=== PATIENT | male | born 1960 | race Caucasian/White ===

== ENCOUNTER 2020-07-09 10:41 | Emergency (ER) | payer OTHER ==
[~2020-07-09 10:41] MED LIST: AFRIN15 ML; AUGMENTIN 875-1 EACH PO; FLONASE 0.05% N16 GM
[2020-07-09 12:56] LABS: HEMOGLOBIN 13.8 gm/dl (14.0-17.5); RED BLOOD COUNT 4.56 M/UL (4.20-5.50); WHITE BLOOD COUNT 9.5 K/UL (4.5-11.0)
[2020-07-09 13:16] LABS: BUN/CREATININE RATIO 32 (0-10)
[2020-07-09] MEDS ORDERED: LEVOFLOXACIN750 MG PO (15:24)
[2020-07-09] MEDS ORDERED: VIBRAMYCIN 100100 MG PO (15:24)
== END 2020-07-09 15:39 | disposition home or self-care (01) ==
LOC: ER1 10:41
PROVIDERS: Emergency Medicine
DX: S92.351A Displaced fracture of fifth metatarsal bone, right foot, initial encounter for closed fracture (principal); E11.621 Type 2 diabetes mellitus with foot ulcer; I10 Essential (primary) hypertension; Z23 Encounter for immunization; X50.1XXA Overexertion from prolonged static or awkward postures, initial encounter; Y92.009 Unspecified place in unspecified non-institutional (private) residence as the place of occurrence of the external cause
CPT/HCPCS: 73630; 80053; 83880; 85025; 85652; 86140; 90471; 90715; 93971; 96365; 99284; J1956

== ENCOUNTER → 2020-07-13 | Outpatient (CLI) | payer OTHER ==
[~2020-07-13] MED LIST changes: +ASPIRIN EC81 MG PO; +ATORVASTATIN CA10 MG PO; +CLINDAMYCIN HC300 MG PO; +CLOPIDOGREL75 MG PO; +ELIQUIS5 MG PO; +FISH OIL EC 1,1 EACH PO; +FUROSEMIDE40 MG PO; +GABAPENTIN100 MG PO; +GLUCOPHAGE 500500 MG PO; +HYDROCODON-ACE1 EAC6 PO; +LEVOFLOXACIN750 MG PO; +LISINOPRIL10 MG PO; +SULFAMETHOXAZO1 EACH PO; +VIBRAMYCIN 100100 MG PO; +VITAMIN C WIT1000 MG PO; +VITAMIN D21250 MCG PO
== END ==
LOC: KOH-I 14:00
DX: M86.8X7 Other osteomyelitis, ankle and foot (principal); S81.801D Unspecified open wound, right lower leg, subsequent encounter; S92.351D Displaced fracture of fifth metatarsal bone, right foot, subsequent encounter for fracture with routine healing; X58.XXXD Exposure to other specified factors, subsequent encounter
CPT/HCPCS: 73630; 93926

== ENCOUNTER → 2020-07-20 | Outpatient (CLI) | payer OTHER | LOC: WCC 09:00 | DX: E11.621 Type 2 diabetes mellitus with foot ulcer (principal); L97.501 Non-pressure chronic ulcer of other part of unspecified foot limited to breakdown of skin; E11.40 Type 2 diabetes mellitus with diabetic neuropathy, unspecified | CPT/HCPCS: 87070; 87077; 87186; 87205; G0463 ==

== ENCOUNTER → 2020-07-21 | Outpatient (CLI) | payer OTHER | LOC: KOH-I 14:41 | DX: S92.351D Displaced fracture of fifth metatarsal bone, right foot, subsequent encounter for fracture with routine healing (principal); L97.519 Non-pressure chronic ulcer of other part of right foot with unspecified severity; X58.XXXD Exposure to other specified factors, subsequent encounter | CPT/HCPCS: 73630 ==

== ENCOUNTER → 2020-07-22 | Outpatient (CLI) | payer OTHER | LOC: WCC 09:00 | DX: E11.621 Type 2 diabetes mellitus with foot ulcer (principal); L97.519 Non-pressure chronic ulcer of other part of right foot with unspecified severity | CPT/HCPCS: G0463 ==

== ENCOUNTER → 2020-07-24 | Outpatient (CLI) | payer OTHER | LOC: WCC 09:00 | DX: E11.621 Type 2 diabetes mellitus with foot ulcer (principal); L97.519 Non-pressure chronic ulcer of other part of right foot with unspecified severity ==

== ENCOUNTER 2020-08-04 14:04 | Inpatient (IN) | payer OTHER ==
[~2020-08-04] VITALS: Ht 182.9 cm; Wt 103.9 kg
[~2020-08-04 14:04] MED LIST changes: -ASPIRIN EC81 MG PO; -ATORVASTATIN CA10 MG PO; -CLINDAMYCIN HC300 MG PO; -CLOPIDOGREL75 MG PO; -ELIQUIS5 MG PO; -FISH OIL EC 1,1 EACH PO; -FUROSEMIDE40 MG PO; -GABAPENTIN100 MG PO; -GLUCOPHAGE 500500 MG PO; -HYDROCODON-ACE1 EAC6 PO; -LISINOPRIL10 MG PO; -SULFAMETHOXAZO1 EACH PO; -VITAMIN C WIT1000 MG PO; -VITAMIN D21250 MCG PO
[2020-08-04 15:32] LABS: HEMOGLOBIN 9.6 gm/dl (14.0-17.5); RED BLOOD COUNT 3.12 M/UL (4.20-5.50); WHITE BLOOD COUNT 17.3 K/UL (4.5-11.0)
[2020-08-04] MEDS ORDERED: LISINOPRIL10 MG PO (17:47)
[2020-08-04] MEDS ORDERED: SULFAMETHOXAZO1 EACH PO (17:47)
[2020-08-04] MEDS ORDERED: CLINDAMYCIN HC300 MG PO (17:48)
[2020-08-04] MEDS ORDERED: GLUCOPHAGE 500500 MG PO (17:49)
[2020-08-04] MEDS ORDERED: ELIQUIS5 MG PO (17:49)
[2020-08-04] MEDS ORDERED: ATORVASTATIN CA10 MG PO (17:49)
[2020-08-04] MEDS ORDERED: FUROSEMIDE40 MG PO (17:50)
[2020-08-04] MEDS ORDERED: VITAMIN C WIT1000 MG PO (17:50)
[2020-08-04] MEDS ORDERED: VITAMIN D21250 MCG PO (17:50)
[2020-08-04] MEDS ORDERED: ASPIRIN EC81 MG PO (17:51)
[2020-08-04 18:02] LABS: HEMOGLOBIN 9.1 gm/dl (14.0-17.5)
[2020-08-05 03:15] LABS: RED BLOOD COUNT 2.93 M/UL (4.20-5.50); WHITE BLOOD COUNT 13.2 K/UL (4.5-11.0)
[2020-08-05 09:47] LABS: HEMOGLOBIN 9.3 gm/dl (14.0-17.5)
[2020-08-05 18:53] LABS: HEMOGLOBIN 9.4 gm/dl (14.0-17.5); RED BLOOD COUNT 3.1 M/UL (4.20-5.50); WHITE BLOOD COUNT 15.7 K/UL (4.5-11.0)
[2020-08-06 02:08] LABS: RED BLOOD COUNT 2.96 M/UL (4.20-5.50); WHITE BLOOD COUNT 15.7 K/UL (4.5-11.0)
[2020-08-07 09:54] LABS: HEMOGLOBIN 8.8 gm/dl (14.0-17.5); RED BLOOD COUNT 2.91 M/UL (4.20-5.50); WHITE BLOOD COUNT 15.4 K/UL (4.5-11.0)
[2020-08-08 05:09] LABS: HEMOGLOBIN 8.5 gm/dl (14.0-17.5); RED BLOOD COUNT 2.77 M/UL (4.20-5.50); WHITE BLOOD COUNT 14.8 K/UL (4.5-11.0)
[2020-08-08 05:42] LABS: BUN/CREATININE RATIO 23 (0-10)
[2020-08-09 03:18] LABS: HEMOGLOBIN 8.2 gm/dl (14.0-17.5); RED BLOOD COUNT 2.71 M/UL (4.20-5.50); WHITE BLOOD COUNT 16.4 K/UL (4.5-11.0)
[2020-08-09 03:41] LABS: BUN/CREATININE RATIO 22 (0-10)
[2020-08-10 03:41] LABS: HEMOGLOBIN 7.8 gm/dl (14.0-17.5); RED BLOOD COUNT 2.59 M/UL (4.20-5.50); WHITE BLOOD COUNT 14.6 K/UL (4.5-11.0)
[2020-08-10 04:02] LABS: BUN/CREATININE RATIO 19 (0-10)
[2020-08-10 17:29] LABS: HEMOGLOBIN 7.6 gm/dl (14.0-17.5)
[2020-08-11 01:50] LABS: HEMOGLOBIN 7.1 gm/dl (14.0-17.5); RED BLOOD COUNT 2.36 M/UL (4.20-5.50)
[2020-08-11 02:07] LABS: BUN/CREATININE RATIO 19 (0-10)
[2020-08-11 09:13] LABS: HEMOGLOBIN 7.6 gm/dl (14.0-17.5)
[2020-08-13 06:41] LABS: HEMOGLOBIN 8.6 gm/dl (14.0-17.5); WHITE BLOOD COUNT 11.5 K/UL (4.5-11.0)
[2020-08-13 06:43] LABS: RED BLOOD COUNT 2.9 M/UL (4.20-5.50)
--- NOTE | 2020-08-13 11:45 | NUR ---
I CALLED SURGERY AND SPOKE WITH SALEEM ABOUT PATIENTS ANITBIOTICS. SHE STATES TO TUBE THE AMPICILLIN DOWN TO HER AND THAT THEY WOULD GIVE WHILE PATIENT WAS ON THIER UNIT.
[2020-08-14 05:40] LABS: HEMOGLOBIN 8.5 gm/dl (14.0-17.5); RED BLOOD COUNT 2.87 M/UL (4.20-5.50); WHITE BLOOD COUNT 11.1 K/UL (4.5-11.0)
[2020-08-15 05:41] LABS: RED BLOOD COUNT 2.72 M/UL (4.20-5.50); WHITE BLOOD COUNT 10.3 K/UL (4.5-11.0)
[2020-08-16 05:40] LABS: HEMOGLOBIN 8.2 gm/dl (14.0-17.5); RED BLOOD COUNT 2.78 M/UL (4.20-5.50); WHITE BLOOD COUNT 10.3 K/UL (4.5-11.0)
[2020-08-17 05:32] LABS: HEMOGLOBIN 8.3 gm/dl (14.0-17.5); RED BLOOD COUNT 2.74 M/UL (4.20-5.50); WHITE BLOOD COUNT 8.9 K/UL (4.5-11.0)
[2020-08-17 05:58] LABS: BUN/CREATININE RATIO 23 (0-10)
[2020-08-19 06:19] LABS: HEMOGLOBIN 8.1 gm/dl (14.0-17.5); RED BLOOD COUNT 2.72 M/UL (4.20-5.50)
[2020-08-19 06:35] LABS: WHITE BLOOD COUNT 11.7 K/UL (4.5-11.0)
[2020-08-20 05:57] LABS: HEMOGLOBIN 7.5 gm/dl (14.0-17.5); RED BLOOD COUNT 2.5 M/UL (4.20-5.50); WHITE BLOOD COUNT 11.7 K/UL (4.5-11.0)
[2020-08-20 06:21] LABS: BUN/CREATININE RATIO 24 (0-10)
[2020-08-20] MEDS ORDERED: GABAPENTIN100 MG PO (15:09)
[2020-08-20] MEDS ORDERED: FISH OIL EC 1,1 EACH PO (15:09)
[2020-08-20] MEDS ORDERED: CLOPIDOGREL75 MG PO (15:09)
[2020-08-20] MEDS ORDERED: FUROSEMIDE40 MG PO (15:09)
[2020-08-20] MEDS ORDERED: VITAMIN D21250 MCG PO (15:10)
[2020-08-20] MEDS ORDERED: ELIQUIS5 MG PO (15:10)
[2020-08-20] MEDS ORDERED: ASPIRIN EC81 MG PO (15:10)
[2020-08-20] MEDS ORDERED: VITAMIN C WIT1000 MG PO (15:10)
[2020-08-20] MEDS ORDERED: GLUCOPHAGE 500500 MG PO (15:10)
[2020-08-20] MEDS ORDERED: HYDROCODON-ACE1 EAC6 PO (15:13)
--- NOTE | 2020-08-20 18:08 | NUR ---
LEFT MESSAGE FOR [facility]. UNSURE OF WHAT TIME WAS ARRANGED FOR PT. PT INSTRUCTED TO CALL [facility] IN AM AND PT. WAS TOLD THIS IS WHERE HE WILL GET HIS ANTIBIOTICS AND DRESSING CHANGES DONE.
== END 2020-08-20 18:41 | disposition home or self-care (01) | DRG 271 ==
LOC: ER1 14:04 → CCU 16:51 → MED SURG 4 16:51 → CDU 16:51 → M/S 16:51 → MED SURG 4 20:59 → CCU 08-13 14:02 → M/S 08-17 16:42
PROVIDERS: Internal Medicine; Physician Assistant; Student in an Organized Health Care Education/Training Program; Surgery; ADMIT Family Medicine
PROC: B24BZZZ Ultrasonography of Heart with Aorta (ICD-10-PCS; 2020-08-06)
PROC: 047K341 Dilation of Right Femoral Artery with Drug-eluting Intraluminal Device, using Drug-Coated Balloon, Percutaneous Approach (ICD-10-PCS; 2020-08-13)
PROC: 047P3Z1 Dilation of Right Anterior Tibial Artery using Drug-Coated Balloon, Percutaneous Approach (ICD-10-PCS; 2020-08-13)
PROC: 047R3Z1 Dilation of Right Posterior Tibial Artery using Drug-Coated Balloon, Percutaneous Approach (ICD-10-PCS; 2020-08-13)
PROC: 047 Lower Arteries, Dilation (ICD-10-PCS; 2020-08-13)
PROC: 04CK3ZZ Extirpation of Matter from Right Femoral Artery, Percutaneous Approach (ICD-10-PCS; principal; 2020-08-13 07:30)
PROC: 0QBN0ZZ Excision of Right Metatarsal, Open Approach (ICD-10-PCS; 2020-08-14)
PROC: 0HRMXK3 Replacement of Right Foot Skin with Nonautologous Tissue Substitute, Full Thickness, External Approach (ICD-10-PCS; 2020-08-14)
DX: E11.52 Type 2 diabetes mellitus with diabetic peripheral angiopathy with gangrene (principal); M86.8X7 Other osteomyelitis, ankle and foot; I96 Gangrene, not elsewhere classified; L03.115 Cellulitis of right lower limb; I50.32 Chronic diastolic (congestive) heart failure; E87.1 Hypo-osmolality and hyponatremia; N17.9 Acute kidney failure, unspecified; Z20.822 Contact with and (suspected) exposure to COVID-19; E11.69 Type 2 diabetes mellitus with other specified complication; N14.1 Nephropathy induced by other drugs, medicaments and biological substances; T50.8X5A Adverse effect of diagnostic agents, initial encounter; I25.10 Atherosclerotic heart disease of native coronary artery without angina pectoris; F17.200 Nicotine dependence, unspecified, uncomplicated; R33.9 Retention of urine, unspecified; D50.9 Iron deficiency anemia, unspecified; D63.8 Anemia in other chronic diseases classified elsewhere; D72.829 Elevated white blood cell count, unspecified; B95.7 Other staphylococcus as the cause of diseases classified elsewhere; B95.1 Streptococcus, group B, as the cause of diseases classified elsewhere; E11.40 Type 2 diabetes mellitus with diabetic neuropathy, unspecified; S92.351A Displaced fracture of fifth metatarsal bone, right foot, initial encounter for closed fracture; I11.0 Hypertensive heart disease with heart failure; E78.5 Hyperlipidemia, unspecified; E11.65 Type 2 diabetes mellitus with hyperglycemia; E11.621 Type 2 diabetes mellitus with foot ulcer; I95.9 Hypotension, unspecified; Z82.49 Family history of ischemic heart disease and other diseases of the circulatory system; Z95.5 Presence of coronary angioplasty implant and graft; Z95.1 Presence of aortocoronary bypass graft; Z79.01 Long term (current) use of anticoagulants; Z86.73 Personal history of transient ischemic attack (TIA), and cerebral infarction without residual deficits; Z79.84 Long term (current) use of oral hypoglycemic drugs; Z79.82 Long term (current) use of aspirin; Z79.899 Other long term (current) drug therapy; I25.2 Old myocardial infarction
CPT/HCPCS: ECHO; 0240U; 36415; 36430; 71045; 73630; 73718; 75630; 80048; 80053; 80202; 82550; 82728; 82962; 83036; 83540; 83550; 83605; 83735; 83880; 84100; 85014; 85018; 85025; 85610; 85652; 85730; 86140; 86850; 86900; 86901; 86920; 87040; 87070; 87077; 87186; 87205; 87635; 93306; 93880; 96365; 96366; 96368; 96372; 96375; 97163; 97530; 97530-GP-CQ; 99285; C1713; C1714; C1725; C1769; C1887; C2623; C9113; J0295; J0878; J1100; J1644; J1940; J2001; J2020; J2270; J2370; J2405; J2543; J2704; J2710; J2720; J2795; J3010; J3370; J7030; J7040; J7050; J7070; J7120; P9016; Q4133; Q9962; U0002

== ENCOUNTER 2020-08-21 09:09 | Emergency (ER) | payer OTHER ==
[~2020-08-21] VITALS: Ht 182.9 cm; Wt 106.6 kg
[~2020-08-21 09:09] MED LIST changes: +ASPIRIN EC81 MG PO; +ATORVASTATIN CA10 MG PO; +CLINDAMYCIN HC300 MG PO; +CLOPIDOGREL75 MG PO; +ELIQUIS5 MG PO; +FISH OIL EC 1,1 EACH PO; +FUROSEMIDE40 MG PO; +GABAPENTIN100 MG PO; +GLUCOPHAGE 500500 MG PO; +HYDROCODON-ACE1 EAC6 PO; +LISINOPRIL10 MG PO; +SULFAMETHOXAZO1 EACH PO; +VITAMIN C WIT1000 MG PO; +VITAMIN D21250 MCG PO
[2020-08-21 10:30] LABS: HEMOGLOBIN 7.6 gm/dl (14.0-17.5); RED BLOOD COUNT 2.54 M/UL (4.20-5.50)
[2020-08-21 10:33] LABS: WHITE BLOOD COUNT 24.5 K/UL (4.5-11.0)
[2020-08-21 16:16] LABS: HEMOGLOBIN 7.7 gm/dl (14.0-17.5)
== END 2020-08-21 19:52 ==
LOC: ER1 09:09 → CDU 11:44 → ER1 11:44 → CDU 08-23 10:30
PROVIDERS: Nurse Practitioner
DX: A41.9 Sepsis, unspecified organism (principal); J18.9 Pneumonia, unspecified organism; E87.2 Acidosis; I13.0 Hypertensive heart and chronic kidney disease with heart failure and stage 1 through stage 4 chronic kidney disease, or unspecified chronic kidney disease; I50.22 Chronic systolic (congestive) heart failure; M86.9 Osteomyelitis, unspecified; R65.20 Severe sepsis without septic shock; E11.65 Type 2 diabetes mellitus with hyperglycemia; R74.01 Elevation of levels of liver transaminase levels; D63.1 Anemia in chronic kidney disease; E11.22 Type 2 diabetes mellitus with diabetic chronic kidney disease; E11.51 Type 2 diabetes mellitus with diabetic peripheral angiopathy without gangrene; N18.30 Chronic kidney disease, stage 3 unspecified; I25.10 Atherosclerotic heart disease of native coronary artery without angina pectoris; I95.9 Hypotension, unspecified; E66.01 Morbid (severe) obesity due to excess calories; Y95 Nosocomial condition; F17.210 Nicotine dependence, cigarettes, uncomplicated; E11.69 Type 2 diabetes mellitus with other specified complication; E87.5 Hyperkalemia; Z20.822 Contact with and (suspected) exposure to COVID-19; Z86.73 Personal history of transient ischemic attack (TIA), and cerebral infarction without residual deficits; Z95.1 Presence of aortocoronary bypass graft; Z79.01 Long term (current) use of anticoagulants; Z98.61 Coronary angioplasty status; Z79.82 Long term (current) use of aspirin; Z79.899 Other long term (current) drug therapy
CPT/HCPCS: 0240U; 71045; 80048; 80053; 82009; 82550; 82553; 82803; 82962; 83605; 83735; 83880; 84484; 85014; 85018; 85025; 85610; 85730; 87040; 93005; 96365; 96366; 96368; 96372; 96375; 96376; 99285; J0692; J3370; J7070